=== PATIENT | female | born 1960 | race Caucasian/White ===

== ENCOUNTER 2016-07-25 10:13 | Day surgery (SDC) | payer OTHER ==
[~2016-07-25 10:13] MED LIST: LIDOCAINE HCL 1%, 10 MG/ML (20ML VIAL) IJ ONE
[2016-07-25] MEDS ORDERED: MIDAZOLAM HCL 2 MG/2 ML SINGLE DOSE VIAL ONE ×2 (12:35)
[2016-07-25] MEDS ORDERED: PROPOFOL 20 ML ONE ×3 (12:51)
[2016-07-25] MEDS ORDERED: SUCCINYLCHOLINE CHLORIDE 200 MG/10 ML VIAL ONE (12:58)
[2016-07-25] MEDS ORDERED: LIDOCAINE HCL 1%, 10 MG/ML (20ML VIAL) IJ ONE ×2 (13:02)
[2016-07-25] MEDS ORDERED: ONDANSETRON 4 MG/2 ML VIAL IVPUSH PRN (13:47)
[2016-07-25] MEDS ORDERED: PROMETHAZINE HCL 25 MG/1 ML VIAL IVPUSH PRN (13:47)
--- NOTE | 2016-07-25 13:50 | OP ---
Operative Note - Note: Operative Date: 07/25/16 Pre-Operative Diagnosis: soft tissue mass right anterior thigh Operation: excision soft tissue mass right anterior thigh Findings: ill defined mass clinically c/w lipoma. Post-Operative Diagnosis: Same as Pre-op Surgeon: Wilbert Kang Anesthesia: MAC Specimens Removed: lipoma Estimated Blood Loss (mls): 5
[2016-07-25] MEDS ORDERED: LACTATED RINGERS SOLUTION 1,000 ML IV SCH (14:00)
[2016-07-25] MEDS ORDERED: KETOROLAC TROMETHAMINE 30 MG/1 ML VIAL ONE (14:20)
[2016-07-25 14:29] VITALS: TEMP 98.3
[2016-07-25] MEDS ORDERED: KETOROLAC TROMETHAMINE 30 MG/1 ML VIAL IVPUSH ONE (15:47)
[2016-07-25 17:50] VITALS: BP 142/73; PULSE 82
--- NOTE | 2016-07-28 21:41 | OP ---
DATE OF OPERATION: 07/25/2016 PREOPERATIVE DIAGNOSIS: Soft-tissue mass, right anterior thigh. POSTOPERATIVE DIAGNOSIS: Soft-tissue mass, right anterior thigh. PROCEDURE: Excision, soft-tissue mass, right anterior thigh. SURGEON: Wilbert Kang MD ANESTHESIA: Local with IV sedation. OPERATIVE FINDINGS: There was an ill-defined lipomatous lesion, partially intramuscular and subfascial in the right anterior thigh. The rest of the findings were unremarkable. PROCEDURE: The patient was placed on the operating room table in supine position with the right lower extremity slightly flexed and supported from behind at the popliteal fossa. The area over the soft tissue mass was prepped with ChloraPrep and draped in sterile fashion. A time-out was taken and incision mapped out over the palpable abnormality. The area was infiltrated with 1% Xylocaine and 0.5% Marcaine in equal concentration. Skin incision was made with a scalpel and taken down through subcutaneous tissue and the superficial fascia and the deep fascia over the rectus femoris muscle. The mass was identified and bluntly dissected from the surrounding area and sent fresh for pathological examination. Hemostasis was secured with electrocautery and the wound was closed in layers with interrupted 2-0 Vicryl for the deep fascia, interrupted 3-0 Vicryl for the superficial fascia, interrupted 3-0 Vicryl for the deep dermis, and 4-0 Biosyn in a subcuticular continuous fashion to reapproximate the skin edges. Steri-Strips and dry sterile dressings were placed, and the procedure terminated at this point, and the patient aroused from general anesthesia. The patient was transferred to the post-anesthesia care unit in stable condition, awake and alert. Estimated blood loss minimal. Drains: None. Specimen: Lipoma to Pathology. I, Wilbert Kang, was physically present in the operating room from the time the patient was placed on the operating table until she was transferred to the post-anesthesia care unit in my accompaniment. MD DEONTE Rogers/[id number]
--- NOTE | 2016-07-30 11:20 | PATH ---
Surgical Pathology Report Patient Name: NAM TIDWELL [facility]. Rec. #: [id number] /Age/Gender: 1960 (Age: 56) / F Account: [id number] Location: [facility] SURGICAL Taken: 07/25/2016 Received: 07/28/2016 Reported: 07/29/2016 Physicians: Wilbert Kang MD Specimen(s) Received SOFT TISSUE MASS RIGHT ANTERIOR THIGH Clinical History Soft tissue mass right thigh Final Diagnosis SOFT TISSUE, RIGHT ANTERIOR THIGH, MASS, EXCISION: MATURE BENIGN ADIPOSE TISSUE CONSISTENT WITH LIPOMA. FRAGMENTS OF BENIGN SKELETAL MUSCLE. Electronically Signed Douglas Wolfe M.D. Gross Description Received in formalin labeled "soft tissue mass right anterior thigh" is a 2.4 x 1.9 x 0.3 cm aggregate of yellow, lobulated adipose tissue. No areas of hemorrhage or necrosis are identified. The specimen is entirely submitted in one cassette. /07/28/201607/28/2016
== END 2016-07-25 16:10 | disposition home or self-care (01) ==
LOC: JASU-SURG 10:13
PROVIDERS: ATTEND Surgery
PROC: 0JBL0ZZ Excision of Right Upper Leg Subcutaneous Tissue and Fascia, Open Approach (ICD-10-PCS; principal; 2016-07-25 12:00)
DX: D21.21 Benign neoplasm of connective and other soft tissue of right lower limb, including hip (principal)
CPT/HCPCS: 88304-TC; 94760